=== PATIENT | female | born 1945 | race Caucasian/White ===

== ENCOUNTER 2021-09-27 06:35 | Day surgery (SDC) | payer MEDICARE ==
[2021-09-27] VITALS (16 sets, daily range): BP systolic 97–138; BP diastolic 37–78
[~2021-09-27] VITALS: Ht 160 cm; Wt 73.2 kg
[2021-09-27] MEDS ORDERED: normal saline 1000ml 1,000 ML IV SCH (06:55)
[2021-09-27] MEDS ORDERED: CHOL50004 PO (07:14)
[2021-09-27] MEDS ORDERED: CITA10TA93 PO (07:14)
[2021-09-27] MEDS ORDERED: GABA300C PO (07:14)
[2021-09-27] MEDS ORDERED: ASPI81TA52 PO (07:14)
[2021-09-27] MEDS ORDERED: MAGNESIUM PO (07:14)
[2021-09-27] MEDS ORDERED: NAPR220T67 PO (07:14)
[2021-09-27] MEDS ORDERED: HYDR-3972 PO (07:14)
[2021-09-27] MEDS ORDERED: PROM25TA14 PO (07:14)
[2021-09-27] MEDS ORDERED: MORP-92 PO (07:14)
[2021-09-27] MEDS ORDERED: METO-395 PO (07:14)
[2021-09-27] MEDS ORDERED: NITR100C11 PO (07:14)
[2021-09-27] MEDS ORDERED: CYAN100T47 PO (07:14)
[2021-09-27] MEDS ORDERED: ALPR1TAB7 PO (07:14)
[2021-09-27] MEDS ORDERED: midazolam 1 mg/ML 2ml injection ONE (08:46)
[2021-09-27] MEDS ORDERED: fentaNYL/PF 50MCG/1 ML 2ML syringe ONE (08:46)
== END 2021-09-27 14:00 | disposition home or self-care (01) ==
LOC: SSTAY O 06:35
PROVIDERS: ATTEND Radiology Vascular & Interventional Radiology
DX: R91.8 Other nonspecific abnormal finding of lung field (principal); C34.11 Malignant neoplasm of upper lobe, right bronchus or lung; J44.9 Chronic obstructive pulmonary disease, unspecified; G62.9 Polyneuropathy, unspecified; E55.9 Vitamin D deficiency, unspecified; E83.42 Hypomagnesemia; Z90.2 Acquired absence of lung [part of]; Z20.822 Contact with and (suspected) exposure to COVID-19; Z87.891 Personal history of nicotine dependence; Z88.2 Allergy status to sulfonamides; Z88.1 Allergy status to other antibiotic agents; Z79.899 Other long term (current) drug therapy
CPT/HCPCS: 32408; 71045; 87635; C9803; J2250; J3010; 77012; 88305; 88341; 88342